=== PATIENT | female | born 1995 | race Two or more races ===

== ENCOUNTER 2017-07-30 20:55 | Emergency (ER) | payer MEDICAID ==
--- NOTE | 2017-07-30 20:56 | EDPHY ---
H & P Time Seen by Provider: 07/30/17 20:56 HPI/ROS: CHIEF COMPLAINT: Seizure from the [facility] HISTORY OF PRESENT ILLNESS: Arrives by EMS, received total of 10 mg Versed 5 intramuscular and 5 IV. Patient was seen to have generalized muscle convulsions on the gurney on the way from the ambulance entrance to the room but then was awake and normally conversant. Did not bite tongue and did not have postictal phase. Patient is a history of [place] and nonepileptic seizures. Usually about every 6-9 months. 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 Has been at detox at the [facility] in [place] since Saturday night. Tonight had 2 seizures per patient thinks it is probably pseudoseizures. REVIEW OF SYSTEMS: Eye: no change in vision ENT: no sore throat Cardiac: no chest pain or syncope Pulmonary: no cough or SOB Abdomen: no vomiting, diarrhea, abdominal pain Musculoskeletal: no back pain or neck pain Skin: no rash Neuro: no headache Constitutional: no fever : no urinary symptoms A comprehensive 10 point review of systems is otherwise negative aside from elements mentioned in the history of present illness. PAST MEDICAL HISTORY: Seizures on gabapentin and Lamictal. 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 General Appearance: Alert and conversant, cooperative. Eyes: No scleral icterus. ENT, Mouth: Normal mucous membranes. No tongue laceration or abrasion. Respiratory: Normal respiratory effort, breath sounds equal, lungs are clear to auscultation. Cardiovascular: Regular rate and rhythm. Gastrointestinal: Abdomen is soft and non tender. Neurological: Alert and oriented x3. Normally conversant. Face symmetric, normal movement and sensation in all extremities. Not tremulous but has active restless leg. Skin: Warm and dry, no rashes. Musculoskeletal: No peripheral edema and no joint swelling. No spinal tenderness. Psychiatric: Not agitated. Emergency Department course/MDM: Oral Ativan 1 mg. without incontinence or tongue biting or postictal state, think nonepileptic seizure most likely diagnosis tonight. Discharged in stable condition, ambulatory at 2225. Constitutional: Initial Vital Signs Temperature (C) 36.7 C 07/30/17 21:06 Heart Rate 108 H 07/30/17 21:06 Respiratory Rate 18 07/30/17 21:06 Blood Pressure 109/60 07/30/17 21:06 O2 Sat (%) 96 07/30/17 21:06 O2 Delivery Mode Room Air Allergies/Adverse Reactions: No Known Allergies Allergy (Unverified 07/30/17 21:04) Home Medications: Medication Instructions Recorded Gabapentin 07/30/17 Lamictal 07/30/17 Loperamide 07/30/17 Medical Decision Making Differential Diagnosis: Differential diagnosis considered for a seizure including but not limited to electrolyte abnormality, alcohol withdrawal, medication noncompliance, head injury, and breakthrough seizure. - Data Points Medications Given: Discontinued Medications Lorazepam (Ativan) 1 mg PO EDNOW ONE Stop: 07/30/17 21:31 Last Admin: 07/30/17 21:48 Dose: 1 mg Departure - Departure Disposition: Home, Routine, Self-Care Clinical Impression: Psychogenic nonepileptic seizure Condition: Good Instructions: Nonepileptic Seizures (ED) Referrals: Mateo Granger MD [Medical Doctor] - As per Instructions (neurology referral)
[2017-07-30] MEDS ORDERED: LORazepam 1 MG TAB PO ONE (21:30)
[2017-07-30 22:33] VITALS: BP 109/76; PULSE 91; RESP 16; TEMP 98.2; O2SAT 97
== END 2017-07-30 23:04 | disposition home or self-care (01) ==
DX: G40.909 Epilepsy, unspecified, not intractable, without status epilepticus (principal); F44.5 Conversion disorder with seizures or convulsions